=== PATIENT | female | born 1980 | race Caucasian/White ===

== ENCOUNTER 2022-06-23 12:43 | Emergency (ER) | payer OTHER, SELFPAY ==
--- NOTE | ~2022-06-23 | XR_ITS ---
EXAMINATION: XR foot RT min 3V DATE: 06/23/2022 13:45 INDICATION: Right foot pain TECHNIQUE: Dorsoplantar, lateral, and 2 oblique views of the right foot were obtained. COMPARISON: None. FINDINGS: There is no fracture, dislocation, or subluxation. There is mild osteoarthritis of the midf oot. The soft tissues are unremarkable. IMPRESSION: 1. Osteoarthritis without acute osseous abnormality. Reviewed, dictated and finalized at location B.
--- NOTE | ~2022-06-23 | XR_ITS ---
EXAMINATION: XR foot LT min 3V DATE: 06/23/2022 13:45 INDICATION: Left foot swelling TECHNIQUE: Dorsoplantar, lateral, and 2 oblique views of the left foot were obtained. COMPARISON: None. FINDINGS: There is no fracture, dislocation, or subluxation. The bones, soft tissues, and joint space s are normal. IMPRESSION: 1. No acute osseous abnormality. Reviewed, dictated and finalized at location B.
[2022-06-23 12:48] VITALS: BP 148/80; PULSE 110; RESP 20; TEMP 36.1; O2SAT 100
--- NOTE | 2022-06-23 13:27 | ED.GENADULT ---
HPI - General Adult General Chief complaint: Extremity Problem,Nontraumatic Stated complaint: Right foot pain Time Seen by Provider: 06/23/22 12:55 History of Present Illness HPI narrative: 41-year-old female presenting to the emergency department for evaluation of bilateral heel pain worse on the right than left. Patient states she did have a tummy tuck and breast reduction approximately 1 week ago in [place]. Patient states that she suspects she may have injured her feet by climbing into a broken recliner. Patient denies any calf pain. Patient denies any chest pain or shortness of breath. Related Data Allergies Allergy/AdvReac Type Severity Reaction Status Date / Time latex Allergy Rash Verified 06/23/22 14:03 Review of Systems Review of Systems: CONSTITUTIONAL: Denies fever, chills, or sweats. EYES: Denies visual changes, redness, or discharge. ENT: Denies rhinorrhea, congestion, sore throat, or otalgia. CARDIOVASCULAR: Denies chest pain, palpitations, or edema. RESPIRATORY: Denies cough or dyspnea. GASTROINTESTINAL: Denies abdominal pain, nausea, vomiting, or diarrhea. GENITOURINARY: Denies dysuria or hematuria. SKIN: Denies rash or itching. MUSCULOSKELETAL: Heel pain and lower foot pain NEUROLOGIC: Denies headache, numbness, or weakness. Exam Narrative: APPEARANCE: Well appearing, no pain, no distress, well-nourished. HEAD: normocephalic, atraumatic. EYES: PERRLA/EOMI, conjunctivae clear. RESPIRATORY: Airway patent, respirations nonlabored. Clear to auscultation bilaterally, no rales, rhonchi, wheezing. MUSCULOSKELETAL: Moves all extremities. Minimal tenderness to palpation. No ecchymosis. No swelling. NEURO: Alert. Cranial nerves II through XII intact. Grossly intact SKIN: Warm, dry. Normal Color Course Course Emergency Course: Patient describes symptoms related to Plan[place] fasciitis. Patient states the pain is worsened in the morning. Patient states she has been wearing more comfortable shoes around the house and states that does help significantly. Patient was encouraged to have close follow-up with her primary care physician. All questions and concerns were addressed. X-ray showed no acute fractures or dislocations Vital Signs Vital signs: Vital Signs Temperature 97 F L 06/23/22 12:48 Pulse Rate 110 H 06/23/22 12:48 Respiratory Rate 20 06/23/22 12:48 Blood Pressure 148/80 H 06/23/22 12:48 Pulse Oximetry 100 06/23/22 12:48 Oxygen Delivery Room Air 06/23/22 12:48 Temperature 97 F L 06/23/22 12:48 Pulse Rate 110 H 06/23/22 12:48 Respiratory Rate 20 06/23/22 12:48 Blood Pressure 148/80 H 06/23/22 12:48 Pulse Oximetry 100 06/23/22 12:48 Oxygen Delivery Room Air 06/23/22 12:48 Medical Decision Making Vital Signs Vital Signs: Vital Signs Temperature 97 F L 06/23/22 12:48 Pulse Rate 110 H 06/23/22 12:48 Respiratory Rate 20 06/23/22 12:48 Blood Pressure 148/80 H 06/23/22 12:48 Pulse Oximetry 100 06/23/22 12:48 Oxygen Delivery Room Air 06/23/22 12:48 Temperature 97 F L 06/23/22 12:48 Pulse Rate 110 H 06/23/22 12:48 Respiratory Rate 20 06/23/22 12:48 Blood Pressure 148/80 H 06/23/22 12:48 Pulse Oximetry 100 06/23/22 12:48 Oxygen Delivery Room Air 06/23/22 12:48 Imaging Data Radiologist's impression: Impressions Foot X-Ray 06/23/22 13:46 IMPRESSION: 1. No acute osseous abnormality. Foot X-Ray 06/23/22 13:48 IMPRESSION: 1. Osteoarthritis without acute osseous abnormality. Discharge Plan Discharge Clinical Impression: Bilateral plantar fasciitis Patient Disposition: Home, Self-Care Condition: Stable Instructions: Antibiotic Form, Plantar Fasciitis (ED) Additional Instructions: Tylenol and ibuprofen for pain control. Gentle stretching as directed. Have close follow-up with your primary care physician. If you have any worsening symptoms then please call or return to the departm
== END 2022-06-23 14:35 | disposition home or self-care (01) ==
PROVIDERS: Emergency Provider Emergency Medicine
DX: M72.2 Plantar fascial fibromatosis (principal); M19.071 Primary osteoarthritis, right ankle and foot
CPT/HCPCS: 73630; 99284